=== PATIENT | male | born 1945 | race Caucasian/White ===

== ENCOUNTER 2017-03-03 07:51 | Day surgery (SDC) | payer OTHER ==
[2017-03-03] MEDS ORDERED: MEPERIDINE HCL/PF 100 MG/ML AMP ONE (08:08)
[2017-03-03] MEDS ORDERED: SIMETHICONE 40 MG/0.6 ML ML ONE (08:08)
[2017-03-03] MEDS: MIDAZOLAM HCL 5 MG/5 ML VIAL ONE ×2 (10:23→10:25)
[2017-03-03 14:32] VITALS: BP_SYST 123
== END 2017-03-03 11:35 | disposition home or self-care (01) ==
LOC: SMU 07:51 → SDS 07:51
PROVIDERS: ATTEND Internal Medicine Gastroenterology
DX: Z12.11 Encounter for screening for malignant neoplasm of colon (principal); M19.90 Unspecified osteoarthritis, unspecified site; K64.8 Other hemorrhoids; K63.5 Polyp of colon
CPT/HCPCS: 45380; 88305; J2175; J2250